=== PATIENT | female | born 1995 | race Two or more races ===

== ENCOUNTER 2025-01-17 15:10 | Emergency (ER) | payer SELFPAY ==
[2025-01-17 15:29] VITALS: BP 128/86; PULSE 75; RESP 17; TEMP 36.8; O2SAT 98; BMI 23.4
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
[2025-01-17] MEDS: CYCLObenzaPRINE 5 MG TABLET PO (16:29)
[2025-01-17] MEDS: KETOROLAC INJ 60 MG/2 ML VIAL 30 MG IM (16:30)
== END 2025-01-17 17:00 | disposition home or self-care (01) ==
PROVIDERS: Emergency Provider Emergency Medicine
DX: S13.4XXA Sprain of ligaments of cervical spine, initial encounter (principal); V43.52XA Car driver injured in collision with other type car in traffic accident, initial encounter; M25.552 Pain in left hip; M25.569 Pain in unspecified knee
CPT/HCPCS: 96372; 99283; J1885; A9270